=== PATIENT | male | born 1955 | race Caucasian/White ===

== ENCOUNTER → 2025-06-10 15:54 | Outpatient (REF) | payer MEDICARE, BC, SELFPAY | LOC: PAVMRI 15:54 | PROVIDERS: ATTENDING PHYSICIAN Physician Assistant Surgical; FAMILY PHYSICIAN Internal Medicine | DX: M54.12 Radiculopathy, cervical region (principal); M54.2 Cervicalgia; R20.2 Paresthesia of skin; Z98.1 Arthrodesis status | CPT/HCPCS: 72141 ==